=== PATIENT | female | born 1985 | race Caucasian/White ===

== ENCOUNTER 2019-06-17 20:57 | Emergency (ER) | payer OTHER ==
[~2019-06-17] VITALS: Ht 172.7 cm; Wt 68.0 kg
[2019-06-17 21:05] VITALS: BP_SYST 116
--- NOTE | 2019-06-17 22:15 | NUR ---
PLACED IN BED2. HERE FOR UPPER BACK BURNING PAIN RADIATING TO THE LEFT SHOULDER/ELBOW/WRIST AND BILATERAL THIGH. DENIES ANY NUMBNESS,TINGLING OR WEAKNESS OF ANY EXTREMITY. Addendum: 06/18/19 at 0341 by [email or web address] CORRECTION: *RIGHT SHOULDER/ELBOW/WRIST AND BILATERAL THIGHS
--- NOTE | 2019-06-17 23:04 | NUR ---
ER-MD CAME BY BEDSIDE TO EVALUATE PT.
[2019-06-17] MEDS ORDERED: KETOROLAC TROMETHAMINE 30 MG VIAL IM ONE (23:15)
--- NOTE | 2019-06-17 23:20 | NUR ---
TORADOL 30 MG IM GIVEN ORDERED.
--- NOTE | 2019-06-17 23:54 | NUR ---
DISCHARGED STABLE AND IMPROVED. PRESCRIPTION,VERBAL AND WRITTEN AFTERCARE INSTRUCTIONS GIVEN. VERBALIZED UNDERSTANDING. LEFT AMBULATORY WITH STABLE GAIT.
[2019-06-18 00:22] VITALS: BP_SYST 107
== END 2019-06-17 23:54 | disposition home or self-care (01) ==
LOC: SED 20:57
DX: M54.5 Low back pain (principal)
CPT/HCPCS: 96372; 99283; J1885